=== PATIENT | female | born 1985 | race Two or more races ===

== ENCOUNTER 2023-09-21 14:48 | Inpatient (IN) | payer MEDICAID, OTHER ==
[~2023-09-21] VITALS: Ht 152.4 cm; Wt 80.1 kg
[2023-09-21 15:52] VITALS: PULSE 78; RESP 16; O2SAT 100
[2023-09-21] MEDS: ACETAMINOPHEN 325 MG TAB PO ONE (15:59)
[2023-09-21] MEDS: SUMAtriptan SUCCINATE 6 MG/0.5 ML VL SC ONE (15:59)
[2023-09-21] MEDS: METOCLOPRAMIDE HCL 5MG/ml INJ 2ml VIAL IM ONE (16:03)
[2023-09-21] MEDS: diphenhdrAMINE HCL 50 MG/1 ML VL IV ONE (16:03)
[2023-09-21] MEDS: hydrALAZINE HCL 20 MG/ML VL IV ONE (16:03)
[2023-09-21] MEDS: diazePAM 2 MG TAB PO ONE (16:18)
[2023-09-21 16:44] LABS: Basophils # (auto) 0.1 10 ^3/uL (0-0.2); Basophils % (auto) 0.6 % (0.0-2.0); Eosinophils # (auto) 0.2 10 ^3/uL (0-0.8); Eosinophils % (auto) 1.9 % (0.0-7.0); Hemoglobin 14.9 g/dL (12.2-16.2); Lymphocytes # (auto) 1.8 10 ^3/uL (0.4-5.4); Lymphocytes % (auto) 23.5 % (10.0-50.0); Mean Corpuscular Hemoglobin 31.4 pg (28.0-32.0); Mean Corpuscular Hgb Conc. 34.6 g/dL (32.0-36.0); Mean Corpuscular Volume 90.7 fL (80.0-100.0); Monocytes # (auto) 0.8 10 ^3/uL (0-1.3); Nucleated Red Blood Cells % 0.1 %; Red Blood Cells 4.74 10^6/uL (4.0-5.20); Red Cell Distribution Width 12.9 % (11.8-14.3); White Blood Cell 7.8 10^3/uL (4.4-10.8)
[2023-09-21 16:58] LABS: Alanine Aminotransferase 29 U/L (7-40); Albumin 4.5 g/dL (3.2-4.8); Alkaline Phosphatase 61 U/L (46-116); Anion Gap 7 (5-15); Aspartate Aminotransferase 14 U/L (13-40); BUN/Creatinine Ratio 9.5 (10.0-20.0); Bilirubin, Total 1.1 mg/dL (0.2-1.0); Blood Urea Nitrogen 9 mg/dL (9-23); Calcium 9.5 mg/dL (8.7-10.4); Carbon Dioxide 28 mmol/L (20-30); Chloride 105 mmol/L (98-107); Cholesterol 207 mg/dL (< 200); Glucose 88 mg/dL (74-106); HDL Cholesterol 39 mg/dL (40-59); LDL Cholesterol 154 mg/dL (< 100); Potassium 3.5 mmol/L (3.5-5.1); Sodium 140 mmol/L (136-145); Total Protein 7.2 g/dL (5.7-8.2); Triglycerides 220 mg/dL (< 150)
[2023-09-21 20:50] VITALS: PULSE 72; RESP 16; O2SAT 98
[2023-09-21] MEDS: KETOROLAC TROMETH 30 MG/ML 1ML VIAL IV ONE (20:57)
[2023-09-21] MEDS: SODIUM CHLORIDE 0.9% 1,000 ML IV ONE (20:57)
[2023-09-21] MEDS ORDERED: DOCUSATE SOD 100 MG CAP PO PRN (21:30)
[2023-09-21] MEDS: NIFEdipine ER 30 MG TAB PO SCH (22:09)
[2023-09-21] MEDS: SODIUM CHLOR 0.9% PF (SALINE LOCK) 10ML VIAL/SYR IV SCH (22:10)
[2023-09-22] VITALS (12 sets, daily range): BP systolic 108–154; BP diastolic 62–101; PULSE 72–97; RESP 16–20; TEMP 97.8–98.5; O2SAT 95–99
[2023-09-22] MEDS: ENOXAPARIN SOD 40 MG/0.4 ML SYRINGE SC SCH (09:07)
[2023-09-22 10:06] LABS: Basophils # (auto) 0 10 ^3/uL (0-0.2); Basophils % (auto) 0.2 % (0.0-2.0); Eosinophils # (auto) 0 10 ^3/uL (0-0.8); Eosinophils % (auto) 0.6 % (0.0-7.0); Hematocrit 38.9 % (36.0-46.0); Hemoglobin 13.3 g/dL (12.2-16.2); Lymphocytes # (auto) 1.2 10 ^3/uL (0.4-5.4); Lymphocytes % (auto) 16.4 % (10.0-50.0); Mean Corpuscular Hemoglobin 31.2 pg (28.0-32.0); Mean Corpuscular Hgb Conc. 34.3 g/dL (32.0-36.0); Mean Corpuscular Volume 90.9 fL (80.0-100.0); Monocytes # (auto) 0.6 10 ^3/uL (0-1.3); Monocytes % (auto) 8.3 % (0.0-12.0); Neutrophils # (auto) 5.7 10 ^3/uL (1.6-8.6); Neutrophils % (auto) 74.5 % (37.0-80.0); Red Blood Cells 4.28 10^6/uL (4.0-5.20); White Blood Cell 7.6 10^3/uL (4.4-10.8)
[2023-09-22 10:18] LABS: Anion Gap 6 (5-15); Calcium 8.7 mg/dL (8.7-10.4); Carbon Dioxide 25 mmol/L (20-30); Chloride 110 mmol/L (98-107); Potassium 3.7 mmol/L (3.5-5.1); Sodium 141 mmol/L (136-145)
[2023-09-22 10:24] LABS: BUN/Creatinine Ratio 13.4 (10.0-20.0); Blood Urea Nitrogen 17 mg/dL (9-23); Glucose 107 mg/dL (74-106)
[2023-09-22 15:31] LABS: Chloride 111 mmol/L (98-107); Potassium 3.5 mmol/L (3.5-5.1); Sodium 142 mmol/L (136-145)
[2023-09-22 15:32] LABS: Anion Gap 5 (5-15); Carbon Dioxide 26 mmol/L (20-30)
[2023-09-22 15:33] LABS: Calcium 8.7 mg/dL (8.7-10.4)
[2023-09-22 15:37] LABS: BUN/Creatinine Ratio 11.3 (10.0-20.0); Blood Urea Nitrogen 14 mg/dL (9-23); Glucose 92 mg/dL (74-106)
[2023-09-22] MEDS ORDERED: NIFE1TAB31 PO (16:04)
[2023-09-22] MEDS: HYDROcodone-ACET 5/325MG TAB PO PRN (20:06)
[2023-09-23] VITALS (9 sets, daily range): BP systolic 128–148; BP diastolic 86–99; PULSE 67–91; RESP 18–22; TEMP 97.5–99.4; O2SAT 91–100
[2023-09-23] MEDS: hydrALAZINE HCL 20 MG/ML VL IV PRN (04:21)
[2023-09-23] MEDS: ONDANSETRON HCL 4 MG/2 ML VIAL IV PRN (05:29)
[2023-09-23 07:42] LABS: Basophils # (auto) 0 10 ^3/uL (0-0.2); Basophils % (auto) 0.1 % (0.0-2.0); Calcium 9.5 mg/dL (8.7-10.4); Chloride 105 mmol/L (98-107); Eosinophils # (auto) 0 10 ^3/uL (0-0.8); Eosinophils % (auto) 0.3 % (0.0-7.0); Hematocrit 41.1 % (36.0-46.0); Hemoglobin 14.5 g/dL (12.2-16.2); Lymphocytes # (auto) 1.9 10 ^3/uL (0.4-5.4); Lymphocytes % (auto) 18.1 % (10.0-50.0); Mean Corpuscular Hgb Conc. 35.4 g/dL (32.0-36.0); Mean Corpuscular Volume 90.5 fL (80.0-100.0); Monocytes # (auto) 0.6 10 ^3/uL (0-1.3); Monocytes % (auto) 6.1 % (0.0-12.0); Neutrophils # (auto) 7.7 10 ^3/uL (1.6-8.6); Neutrophils % (auto) 75.4 % (37.0-80.0); Potassium 3.2 mmol/L (3.5-5.1); Red Blood Cells 4.54 10^6/uL (4.0-5.20); Red Cell Distribution Width 13.1 % (11.8-14.3); Sodium 142 mmol/L (136-145); White Blood Cell 10.2 10^3/uL (4.4-10.8)
[2023-09-23 07:43] LABS: Anion Gap 12 (5-15); Carbon Dioxide 25 mmol/L (20-30)
[2023-09-23 07:48] LABS: BUN/Creatinine Ratio 12.1 (10.0-20.0); Blood Urea Nitrogen 12 mg/dL (9-23); Glucose 118 mg/dL (74-106)
[2023-09-23] MEDS: ACETAMINOPHEN 325 MG TAB PO PRN (09:54)
[2023-09-23] MEDS: NIFEdipine ER 30 MG TAB PO SCH (09:55)
[2023-09-23] MEDS ORDERED: NIFEdipine ER 30 MG TAB PO SCH (10:00)
[2023-09-23] MEDS: POTASSIUM CHL 20 Meq TABLET PO ONE (15:40)
[2023-09-23] MEDS: PANTOPRAZOLE 40 MG TAB PO ONE (15:40)
[2023-09-23 16:29] LABS: Urine Bacteria None Seen /hpf (None Seen)
[2023-09-23 16:42] LABS: Urine Blood 3+ /uL (Negative); Urine Clarity Turbid (Clear); Urine Color Light-Yellow (Yellow); Urine Protein, UAD Negative (Negative); Urine Specific Gravity 1.012 (1.001-1.035); Urine Urobilinogen Normal (Negative); Urine WBC 5 /hpf (0 - 5)
[2023-09-24 01:00] VITALS: BP 152/101; PULSE 91; RESP 18; TEMP 98; O2SAT 96
[2023-09-24 05:00] VITALS: BP 112/76; PULSE 104; RESP 20; TEMP 98.2; O2SAT 97
[2023-09-24] MEDS: PANTOPRAZOLE 40 MG TAB PO SCH (05:17)
[2023-09-24 07:07] LABS: Basophils # (auto) 0 10 ^3/uL (0-0.2); Basophils % (auto) 0.3 % (0.0-2.0); Eosinophils # (auto) 0 10 ^3/uL (0-0.8); Eosinophils % (auto) 0.2 % (0.0-7.0); Hematocrit 42.6 % (36.0-46.0); Lymphocytes # (auto) 1.4 10 ^3/uL (0.4-5.4); Mean Corpuscular Hemoglobin 31.8 pg (28.0-32.0); Mean Corpuscular Hgb Conc. 35.3 g/dL (32.0-36.0); Monocytes # (auto) 0.5 10 ^3/uL (0-1.3); Neutrophils # (auto) 5.6 10 ^3/uL (1.6-8.6); Neutrophils % (auto) 74.5 % (37.0-80.0); Red Blood Cells 4.73 10^6/uL (4.0-5.20); Red Cell Distribution Width 13.1 % (11.8-14.3); White Blood Cell 7.5 10^3/uL (4.4-10.8)
[2023-09-24 07:23] LABS: Chloride 106 mmol/L (98-107); Potassium 3.4 mmol/L (3.5-5.1); Sodium 139 mmol/L (136-145)
[2023-09-24 07:24] LABS: Anion Gap 9 (5-15); Calcium 9.5 mg/dL (8.7-10.4); Carbon Dioxide 24 mmol/L (20-30)
[2023-09-24 07:29] LABS: BUN/Creatinine Ratio 13.8 (10.0-20.0); Blood Urea Nitrogen 12 mg/dL (9-23); Glucose 102 mg/dL (74-106)
[2023-09-24 08:00] VITALS: PULSE 81
[2023-09-24 08:43] VITALS: BP 125/86; PULSE 90; RESP 20; TEMP 98.5; O2SAT 98
[2023-09-24 09:26] LABS: INR 1.02 (0.9-1.15); Prothrombin Time 10.8 sec (9.3-11.8)
[2023-09-24] MEDS ORDERED: NIFE1TAB30 PO (18:27)
== END 2023-09-24 14:00 | disposition home or self-care (01) | DRG 199 ==
LOC: ER 14:48 → TELE 21:37 → TELE-WESTW 23:42
PROVIDERS: ADMIT Internal Medicine; ATTEND Emergency Medicine
DX: I16.0 Hypertensive urgency (principal); E78.5 Hyperlipidemia, unspecified; G43.711 Chronic migraine without aura, intractable, with status migrainosus; I10 Essential (primary) hypertension
CPT/HCPCS: 36415; 70450; 71045; 76705; 76775; 80048; 80053; 80061; 81001; 83036; 83880; 84702; 85025; 85610; G0378; J2405